=== PATIENT | male | born 1995 | race Caucasian/White ===

== ENCOUNTER 2016-09-03 23:30 | Emergency (ER) | payer OTHER ==
[~2016-09-03] VITALS: Ht 182.9 cm; Wt 96.5 kg
[2016-09-04 01:20] VITALS: BP 113/61
== END 2016-09-04 01:23 | disposition home or self-care (01) ==
LOC: EME 23:30 → EXP 23:30
PROC: 0HQ1XZZ Repair Face Skin, External Approach (ICD-10-PCS; principal; 2016-09-04)
DX: S01.81XA Laceration without foreign body of other part of head, initial encounter (principal); W00.0XXA Fall on same level due to ice and snow, initial encounter
CPT/HCPCS: 99281; 99284